=== PATIENT | male | born 1985 | race Caucasian/White ===

== ENCOUNTER 2016-07-18 11:40 | Day surgery (SDC) | payer OTHER ==
[~2016-07-18] VITALS: Ht 172.7 cm; Wt 73.8 kg
[2016-07-18 12:56] VITALS: Ht 172.7 cm; Wt 73.8 kg
[2016-07-18 13:20] VITALS: BP 110/64; PULSE 72; RESP 18
[2016-07-18] MEDS ORDERED: XANAX (13:22)
[2016-07-18] MEDS ORDERED: LEXAPRO (13:22)
[2016-07-18] MEDS ORDERED: PROPOFOL 20 ML ONE ×2 (13:27→13:55)
[2016-07-18 14:24] VITALS: BP 107/74; PULSE 70; RESP 19
--- NOTE | 2016-07-18 14:32 | GILP ---
DATE OF PROCEDURE: 07/18/2016 NAME OF PROCEDURE: Colonoscopy. SURGEON: Claire Rajput MD PREOPERATIVE DIAGNOSIS: Right lower quadrant abdominal pain. POSTOPERATIVE DIAGNOSES: 1. Colonoscopy all the way to the cecum and into the terminal ileum. 2. Normal terminal ileum. 3. Normal colonoscopic exam except for internal hemorrhoids. INDICATION FOR THE PROCEDURE: Mr. Jaden Sanders is a 31-year-old male patient who had right lower q uadrant abdominal pain, which was not responding to therapy. The patient had ultrasound and abdomin al CT scan, and they were normal. The patient was scheduled for colonoscopy for further evaluation. The procedure and possible complications were well explained to the patient, he understood and conse nted to the procedure. DESCRIPTION OF PROCEDURE: Under the influence of anesthesia, the colonoscope was carefully introduc ed in the rectum and under direct vision, it was advanced all the way to the cecum and through the i leocecal valve into the terminal ileum. FINDINGS: The terminal ileum was normal. The colonic mucosa was normal. The cecum and right colon were normal. There was no colitis or neoplasm identified. The patient was noted to have small int ernal hemorrhoids. He tolerated the procedure very well and there was no complication from the procedure. At the end o f the procedure, he was awake with stable vital signs and he was discharged home to the care of his family. IMPRESSION: 1. Colonoscopy all the way to the cecum and into the terminal ileum. 2. Normal terminal ileum. 3. Normal cecum and normal right colon. 4. No colitis or neoplasm was identified. 5. Small internal hemorrhoids. PLAN: Bentyl 10 mg p.o. t.i.d. p.r.n. for pain. Dictated By: CLAIRE NOLAN/ETKA Conf#: [id number] DID#: [id number] CC: CLAIRE RAJPUT MD;*EndCC*
== END 2016-07-18 15:55 | disposition home or self-care (01) ==
LOC: GIL 11:40
PROVIDERS: ATTEND Internal Medicine Gastroenterology
DX: K64.8 Other hemorrhoids (principal); F41.9 Anxiety disorder, unspecified
CPT/HCPCS: 45378; Z7610

== ENCOUNTER 2018-09-24 13:58 | Emergency (ER) | payer OTHER ==
[~2018-09-24] VITALS: Wt 73.8 kg
[~2018-09-24 13:58] MED LIST: ALPR0.5T6 PO; CHLO25CA9 PO; ESCI10TA48 PO; ESCI5TAB10 PO; LEXAPRO; LORA1TAB PO; XANAX
[2018-09-24] MEDS ORDERED: ONDANSETRON 4 MG INJ IV STA (14:42)
[2018-09-24] MEDS ORDERED: LORAZEPAM 2 MG INJ IV STA (14:42)
[2018-09-24] MEDS ORDERED: SOD CHLORIDE 0.9% 1,000 ML IV STA (14:42)
[2018-09-24] MEDS ORDERED: MAGNESIUM SULFATE 2 GM, MULTIVITAMINS 10 ML, THIAMINE 100 MG, FOLIC ACID 1 MG in SOD CH... IV STA (15:03)
[2018-09-24] MEDS ORDERED: CHLORDIAZEPOXIDE 25 MG CAP PO ONE (15:30)
[2018-09-24] MEDS ORDERED: LORAZEPAM 2 MG INJ IV ONE (17:00)
--- NOTE | 2018-09-24 18:31 | ERD ---
ER Documentation Chief Complaint Chief Complaint ETOH WITHDRAWAL, LAST DRINK AT 0300 THIS AM HPI This is a 33-year-old male with a history of alcoholism. The patient indicates for the past several weeks he has been drinking alcohol every day. His last drink was at 3 AM this morning roughly 11 hours prior to arrival. The patient states he is feeling very shaky. He is felt nauseous but denies any hemoptysis hematemesis or melanotic stools. He denies any diarrhea or abdominal pain. He has had no fevers or shaking or chills. He states he is never had any history of alcohol withdrawal seizures. He denies any confusion. ROS All systems reviewed and are negative except as per history of present illness. Medications Home Meds Active Scripts Lorazepam* (Lorazepam*) 1 Mg Tablet, 1 MG PO Q8H PRN for ANXIETY, #20 TAB Prov:EDISON HARRIS MD 09/24/18 Reported Medications Alprazolam* (Alprazolam*) 0.5 Mg Tablet, 0.5 MG PO NEEDED PRN for ANXIETY, TAB 09/24/18 Escitalopram Oxalate* (Escitalopram Oxalate*) 10 Mg Tablet, 10 MG PO DAILY, #30 TAB 09/24/18 Escitalopram Oxalate* (Escitalopram Oxalate*) 5 Mg Tablet, 5 MG PO DAILY, #30 TAB 09/24/18 Discontinued Reported Medications [Xanax] No Conflict Check 07/18/16 [Lexapro] No Conflict Check 07/18/16 Allergies Allergies: Coded Allergies: quetiapine fumarate (Verified Allergy, Unknown, DIFFICULTY BREATHING, 09/24/18) PMhx/Soc History of Surgery: Yes (HERNIA REPAIR) Anesthesia Reaction: No Hx Neurological Disorder: No Hx Respiratory Disorders: No Hx Cardiac Disorders: No Hx Psychiatric Problems: Yes (ANXIETY) Hx Miscellaneous Medical Probl: No Hx Alcohol Use: No Hx Substance Use: No Hx Tobacco Use: No Smoking Status: Never smoker Physical Exam Vitals Vital Signs Date Temp Pulse Resp B/P (MAP) Pulse Ox O2 O2 Flow FiO2 Time Delivery Rate 09/24/18 97.8 105 18 113/61 99 14:07 (78) Physical Exam Constitutional:Well-developed. Well-nourished. HEENT:Normocephalic. Atraumatic.Pupils were equal round reactive to light. dry mucous membranes.No tonsillar exudates. Conjunctival injection bilaterally Neck: No nuchal rigidity. No lymphadenopathy. No posterior cervical spine tenderness or step-offs. Respiratory: Not using accessory muscles of respiration.Lungs were clear to auscultation bilaterally. No rhonchi. No rales. No wheezing. Cardiovascular: Regular rate regular rhythm.No murmurs. No rubs were appreciated.S1, S2 normal. Distal pulses are palpable 2+ bilaterally. GI: Abdomen was soft. Nontender. Non Distended. No pulsatile abdominal masses or bruits. No rebound. No guarding. Bowel sounds were present and normal. Muscle skeletal: Full range of motion of both the upper and lower extremities bilaterally.Normal muscle tone.No assymetrical calf tenderness or swelling. Skin: No petechia, no purpura. No lesions on the palms or the soles of the feet. No maculopapular rash. NEURO: Patient was alert, awake, orientated x3.No facial droop. Gait observed and normal with no ataxia.Speech had regular rate and rhythm. No focal neurological deficits. [employer] Result Diagram: 09/24/18 1523 09/24/18 1523 Results 24 hrs Laboratory Tests Test 09/24/18 15:23 09/24/18 15:28 White Blood Count 3.9 10^3/ul Red Blood Count 4.94 10^6/ul Hemoglobin 16.1 g/dl Hematocrit 46.5 % Mean Corpuscular Volume 94.1 fl Mean Corpuscular Hemoglobin 32.6 pg Mean Corpuscular Hemoglobin Concent 34.6 g/dl Red Cell Distribution Width 12.0 % Platelet Count 168 10^3/UL Mean Platelet Volume 9.9 fl Immature Granulocytes % 0.300 % Neutrophils % 69.0 % Lymphocytes % 17.4 % Monocytes % 11.5 % Eosinophils % 0.8 % Basophils % 1.0 % Nucleated Red Blood Cells % 0.0 /100WBC Immature Granulocytes # 0.010 10^3/ul Neutrophils # 2.7 10^3/ul Lymphocytes # 0.7 10^3/ul Monocytes # 0.5 10^3/ul Eosinophils # 0.0 10^3/ul Basophils # 0.0 10^3/ul Nucleated Red Blood Cells # 0.0 10^3/ul Prothrombin Time 14.2 Sec Prothrombin Time Ratio 1.1 INR International Normalized Ratio 1.09 Activated Partial Thromboplast Time 24.4 Sec Sodium Level 141 mmol/L Potassium Level 4.3 mmol/L Chloride Level 100 mmol/L Carbon Dioxide Level 26 mmol/L Anion Gap 15 Blood Urea Nitrogen 12 mg/dl Creatinine 0.78 mg/dl Est Glomerular Filtrat Rate mL/min > 60 mL/min Glucose Level 122 mg/dl Calcium Level 10.1 mg/dl Total Bilirubin 1.0 mg/dl Direct Bilirubin 0.00 mg/dl Indirect Bilirubin 1.0 mg/dl Aspartate Amino Transf (AST/SGOT) 263 IU/L Alanine Aminotransferase (ALT/SGPT) 272 IU/L Alkaline Phosphatase 86 IU/L Total Protein 8.4 g/dl Albumin 5.4 g/dl Globulin 3.00 g/dl Albumin/Globulin Ratio 1.80 Amylase Level 114 U/L Lipase 697 U/L Salicylates Level < 1.0 mg/dl Acetaminophen Level < 10.0 ug/ml Ethyl Alcohol Level 32.0 mg/dl Urine Color YELLOW Urine Clarity CLOUDY Urine pH 7.0 Urine Specific Harrah 1.024 Urine Ketones TRACE mg/dL Urine Nitrite NEGATIVE mg/dL Urine Bilirubin NEGATIVE mg/dL Urine Urobilinogen NEGATIVE mg/dL Urine Leukocyte Esterase NEGATIVE Myesha/ul Urine Microscopic RBC 2 /HPF Urine Microscopic WBC 0 /HPF Urine Amorphous Crystals MODERATE /HPF Urine Bacteria FEW /HPF Urine Mucus FEW /HPF Urine Hemoglobin NEGATIVE mg/dL Urine Glucose NEGATIVE mg/dL Urine Total Protein 2+ mg/dl Urine Opiates Screen Negative Urine Barbiturates Negative Urine Amphetamines Screen Negative Urine Benzodiazepines Screen Negative Urine Cocaine Screen Negative Urine Cannabinoids Negative Current Medications Medications Dose Sig/Francheska Start Time Status Last (Trade) Ordered Route PRN Stop Time Admin Dose Reason Admin Sodium 1,000 ml @ Q1H STAT 09/24/18 DC 09/24/18 Chloride 1,000 mls/hr IV 14:42 09/24/18 15:39 15:41 Lorazepam 1 mg ONCE STAT 09/24/18 DC 09/24/18 (Ativan) IV 14:42 09/24/18 15:40 14:44 Ondansetron 4 mg ONCE STAT 09/24/18 DC 09/24/18 HCl (Zofran IV 14:42 09/24/18 15:40 Inj) 14:44 100 mg ONCE ONCE 09/24/18 DC 09/24/18 Chlordiazepox PO 15:30 09/24/18 15:39 danny 15:31 (Librium) Magnesium 1,015.2 ml Q2H2M STAT 09/24/18 DC 09/24/18 Sulfate 2 @ 500 mls/ IV 15:03 09/24/18 15:57 gm/ hr 17:04 Multivitamins 10 ml/Thiamine HCl 100 mg/Folic Acid 1 mg/Sodium Chloride Lorazepam 1 mg ONCE ONCE 09/24/18 DC 09/24/18 (Ativan) IV 17:00 09/24/18 17:33 17:01 Procedures/MDM This is a 33-year-old male presented to the emergency department physical exam findings suggestive of a mild alcohol withdrawal. The patient immediately was placed on a equipment monitor phototypesetting continuous pulse oximetry and IV access was established by nursing staff. The patient was given intravenous Ativan Librium as well as a banana bag which included folic acid thiamine and multivitamin. 12 Lead EKG tracing ordered and reviewed by myself showed: Normal sinus rhythm of 96 bpm and no arrhythmia. [place] interval normal. QRS duration normal. No ST segment elevation No ST segment depression. No changes consistent with acute ischemia. The patient serum ethanol was 32. He was showing signs of alcohol withdrawal. His transaminitis was suggestive of his alcoholism. Lipase was elevated at 697 but the patient did not have physical exam findings to suggest pancreatitis. Observation Note: Time: 4 hours Family Hx: No Hypertension Evaluation: Multiple exams showed improving symptoms and no evidence of Warnicke's encephalopathy or impending delirium tremors. The patient was discharged home in fair condition. They were instructed to return to the emergency department at any time if there was any worsening of their condition. The patient stated they would follow up with their PCP in the next 24-48 hours to initiate a suitable medication regimen under the care of their PCP as well as to allow their PCP to monitor any drug reactions. The patient was discharged home with prescriptions after they gave informed consent to the new medication. They were also fully informed by myself on the adverse effects and adverse drug interactions in order to provide adequate safeguards to prevent possible adverse reactions to medications. Departure Diagnosis: Primary Impression: Alcohol withdrawal Complication of substance-induced condition: uncomplicated Qualified Codes: F10.230 - Alcohol dependence with withdrawal, uncomplicated Condition: Fair Patient Instructions: Alcoholism: Getting Help, Alcohol Withdrawal EDISON HARRIS MD Sep 24, 2018 18:30
[2018-09-24 19:23] VITALS: BP 127/98; PULSE 90; RESP 18
== END 2018-09-24 19:26 | disposition home or self-care (01) ==
LOC: E/R 13:58
DX: F10.230 Alcohol dependence with withdrawal, uncomplicated (principal)
CPT/HCPCS: 80053; 80307; 81001; 82150; 83690; 85025; 85610; 85730; 93005; J2060; J2405; J3411; J3475; J7030; Z7610; 96374; 96375; 96376